=== PATIENT | male | born 1935 | race Caucasian/White ===

== ENCOUNTER 2017-02-04 12:23 | Emergency (ER) | payer OTHER, BC ==
[~2017-02-04] VITALS: Ht 180.3 cm; Wt 83.4 kg
[~2017-02-04 12:23] MED LIST: ASPIR-LOW81 MG PO; ATORVASTATIN CA80 MG PO; CELEXA40 MG PO; INDERAL60 MG PO; PANTOPRAZOLE SO40 MG PO; PRIMIDONE50 MG PO; PROPRANOLOL HCL60 MG PO; RAMIPRIL2.5 MG PO
[2017-02-04 13:23] LABS: HEMATOCRIT 39.4 % (38.0-50.0); MCH 27.4 PG (29.0-34.0); MCHC 32.5 G/DL (30.0-36.0); MCV 84.4 FL (86-99); MEAN PLAT.VOLUME 10.4 uM^3 (9.0-12.4); PLATELET COUNT 137 K/uL (156-360); RBC DIS.WIDTH-CV 14.2 % (11.8-14.6); RED BLOOD COUNT 4.67 M/uL (4.00-5.50); WHITE BLOOD COUNT 7.2 K/uL (4.1-10.2)
[2017-02-04 13:33] LABS: CHLORIDE 106 mEq/L (99-109); POTASSIUM 3.7 mEq/L (3.7-5.4); SODIUM 138 mEq/L (136-147)
[2017-02-04 13:36] LABS: GLUCOSE 107 mg/dL (70-99)
[2017-02-04 13:37] LABS: ANION GAP 10 MEQ/L (2-14)
[2017-02-04 13:38] LABS: TOTAL BILIRUBIN 1.6 mg/dL (0.0-1.0)
[2017-02-04 13:39] LABS: ALKALINE PHOSPHATASE 59 IU/L (3-129); GFR ESTIMATE (CALCULATED) 56 mL/min/
[2017-02-04 13:40] LABS: UREA NITROGEN (BUN) 15 mg/dL (9-23)
[2017-02-04] MEDS ORDERED: ATORVASTATIN CA40 MG PO (15:02)
[2017-02-04 15:11] LABS: ADD MIUA? NO; BILIRUBIN NEGATIVE; BLOOD NEGATIVE; COLOR YELLOW ((YELLOW)); GLUCOSE (STRIP) NEGATIVE; KETONES NEGATIVE; LEUKOCYTES NEGATIVE; NITRITE NEGATIVE; PROTEIN (STRIP) NEGATIVE; SPECIFIC GRAVITY 1.013 (1.000-1.030); UCUL ADDED? NO; UROBILINOGEN 0.2 MG/DL (0.2-1.0)
[2017-02-04 16:30] VITALS: BP 128/64
[2017-02-05] MEDS ORDERED: FLAGYL500 MG PO (17:21)
[2017-02-05] MEDS ORDERED: CIPRO500 MG PO (17:21)
[2017-02-05] MEDS ORDERED: ZOFRAN ODT4 MG PO (17:21)
== END 2017-02-04 16:32 | disposition home or self-care (01) ==
LOC: EME 12:23
DX: R19.7 Diarrhea, unspecified (principal); R11.2 Nausea with vomiting, unspecified; E78.5 Hyperlipidemia, unspecified; I10 Essential (primary) hypertension; Z86.73 Personal history of transient ischemic attack (TIA), and cerebral infarction without residual deficits
CPT/HCPCS: 80053; 81003; 85027; 99281; 99285; J7040

== ENCOUNTER 2017-02-05 13:20 | Emergency (ER) | payer OTHER, BC ==
[~2017-02-05] VITALS: Ht 177.8 cm; Wt 82.1 kg
[~2017-02-05 13:20] MED LIST changes: +ATORVASTATIN CA40 MG PO
[2017-02-05 14:04] LABS: HEMATOCRIT 39.3 % (38.0-50.0); MCH 27.3 PG (29.0-34.0); MCHC 32.3 G/DL (30.0-36.0); MCV 84.5 FL (86-99); MEAN PLAT.VOLUME 10.4 uM^3 (9.0-12.4); PLATELET COUNT 140 K/uL (156-360); RBC DIS.WIDTH-CV 14.1 % (11.8-14.6); RBC DIS.WIDTH-SD 43.2 % (39-53); RED BLOOD COUNT 4.65 M/uL (4.00-5.50); WHITE BLOOD COUNT 4.7 K/uL (4.1-10.2)
[2017-02-05 14:07] LABS: CHLORIDE 108 mEq/L (99-109); POTASSIUM 3.5 mEq/L (3.7-5.4); SODIUM 139 mEq/L (136-147)
[2017-02-05 14:09] LABS: GLUCOSE 111 mg/dL (70-99)
[2017-02-05 14:10] LABS: ANION GAP 10 MEQ/L (2-14)
[2017-02-05 14:12] LABS: ALKALINE PHOSPHATASE 64 IU/L (3-129); TOTAL BILIRUBIN 1.2 mg/dL (0.0-1.0)
[2017-02-05 14:13] LABS: GFR ESTIMATE (CALCULATED) > 59 mL/min/
[2017-02-05 14:14] LABS: UREA NITROGEN (BUN) 17 mg/dL (9-23)
[2017-02-05 16:03] LABS: ADD MIUA? NO; BILIRUBIN NEGATIVE; BLOOD NEGATIVE; COLOR YELLOW ((YELLOW)); GLUCOSE (STRIP) NEGATIVE; KETONES NEGATIVE; LEUKOCYTES NEGATIVE; NITRITE NEGATIVE; PROTEIN (STRIP) NEGATIVE; SPECIFIC GRAVITY 1.008 (1.000-1.030); UCUL ADDED? NO; UROBILINOGEN 0.2 MG/DL (0.2-1.0)
[2017-02-05 16:36] LABS: C DIFF TOXIN NEGATIVE (NEGATIVE); PROBE CHECK PASS; SPECIMEN PROCESSING CONTROL PASS
[2017-02-05] MEDS ORDERED: FLAGYL500 MG PO (17:21)
[2017-02-05] MEDS ORDERED: ZOFRAN ODT4 MG PO (17:21)
[2017-02-05] MEDS ORDERED: CIPRO500 MG PO (17:21)
[2017-02-05 17:37] VITALS: BP 163/78
== END 2017-02-05 17:39 | disposition home or self-care (01) ==
LOC: EME 13:20
PROVIDERS: Emergency Medicine
DX: R19.7 Diarrhea, unspecified (principal); E86.0 Dehydration; R53.1 Weakness; E78.5 Hyperlipidemia, unspecified; I10 Essential (primary) hypertension; K21.9 Gastro-esophageal reflux disease without esophagitis; Z86.73 Personal history of transient ischemic attack (TIA), and cerebral infarction without residual deficits
CPT/HCPCS: 74177; 80053; 81003; 85027; 87045; 87493; 87506; 99281; 99285; J7030

== ENCOUNTER 2017-02-25 11:28 | Inpatient (IN) | payer OTHER, BC ==
[~2017-02-25] VITALS: Ht 180.3 cm; Wt 80.7 kg
[~2017-02-25 11:28] MED LIST changes: +CIPRO500 MG PO; +FLAGYL500 MG PO; +ZOFRAN ODT4 MG PO
[2017-02-25 13:35] LABS: HEMATOCRIT 40.3 % (38.0-50.0); MCH 27.3 PG (29.0-34.0); MCHC 32.5 G/DL (30.0-36.0); MCV 84.1 FL (86-99); MEAN PLAT.VOLUME 10.8 uM^3 (9.0-12.4); PLATELET COUNT 177 K/uL (156-360); RBC DIS.WIDTH-CV 14.4 % (11.8-14.6); RBC DIS.WIDTH-SD 43.9 % (39-53); RED BLOOD COUNT 4.79 M/uL (4.00-5.50); WHITE BLOOD COUNT 5.8 K/uL (4.1-10.2)
[2017-02-25 13:46] LABS: CHLORIDE 106 mEq/L (99-109); POTASSIUM 3.7 mEq/L (3.7-5.4); SODIUM 140 mEq/L (136-147)
[2017-02-25 13:49] LABS: GLUCOSE 93 mg/dL (70-99)
[2017-02-25 13:50] LABS: ANION GAP 9 MEQ/L (2-14)
[2017-02-25 13:51] LABS: TOTAL BILIRUBIN 1.1 mg/dL (0.0-1.0)
[2017-02-25 13:52] LABS: ALKALINE PHOSPHATASE 61 IU/L (3-129); GFR ESTIMATE (CALCULATED) > 59 mL/min/
[2017-02-25 13:53] LABS: UREA NITROGEN (BUN) 7 mg/dL (9-23)
[2017-02-25 13:56] LABS: LIPASE 22 U/L (1.0-51.0)
[2017-02-25 15:28] LABS: INTERNAL CONTROL VALID? YES
[2017-02-25 15:35] LABS: ADD MIUA? YES; BILIRUBIN NEGATIVE; BLOOD NEGATIVE; COLOR YELLOW ((YELLOW)); GLUCOSE (STRIP) NEGATIVE; KETONES NEGATIVE; LEUKOCYTES NEGATIVE; NITRITE NEGATIVE; PROTEIN (STRIP) 100; SPECIFIC GRAVITY 1.011 (1.000-1.030); UROBILINOGEN 0.2 MG/DL (0.2-1.0)
[2017-02-25 15:40] LABS: BACTERIA RARE /HPF; EPITHELIAL CELLS NONE SEEN /HPF; HYALINE CASTS 20-30 /LPF; MUCUS TRACE /LPF; RED BLOOD CELLS 0-5 /HPF (0-5); WHITE BLOOD CELLS 0-5 /HPF (0-5)
[2017-02-25 15:52] LABS: C DIFF TOXIN POSITIVE (NEGATIVE)
[2017-02-25 15:54] LABS: PROBE CHECK PASS
[2017-02-25] MEDS ORDERED: FLAGYL500 MG PO (16:18)
[2017-02-25] MEDS ORDERED: RAPAFLO8 MG PO (17:30)
[2017-02-25] MEDS ORDERED: PROPRANOLOL HC120 MG PO (17:30)
[2017-02-25] MEDS ORDERED: RANITIDINE HCL150 MG PO (17:30)
[2017-02-25] MEDS ORDERED: LO-DOSE ASPIRIN81 M1 PO (17:30)
[2017-02-25] MEDS ORDERED: MYRBETRIQ25 MG PO (17:31)
[2017-02-25] MEDS ORDERED: CALCIUM 600 +1 EA16 PO (17:31)
[2017-02-25] MEDS ORDERED: VITAMIN C1000 MG PO (17:31)
[2017-02-25 18:04] LABS: C-REACTIVE PROTEIN 15.6 MG/L (0-10); SAMPLE HEMOLYSIS CHECK 0; SAMPLE ICTERIC CHECK 0; SAMPLE LIPEMIA CHECK 0
[2017-02-25 23:50] VITALS: BP 161/74
[2017-02-26 04:00] VITALS: BP 142/85
[2017-02-26 06:53] LABS: HEMATOCRIT 35.9 % (38.0-50.0); MCH 27.5 PG (29.0-34.0); MCHC 32.3 G/DL (30.0-36.0); MCV 85.1 FL (86-99); MEAN PLAT.VOLUME 10.6 uM^3 (9.0-12.4); PLATELET COUNT 160 K/uL (156-360); RBC DIS.WIDTH-CV 14.3 % (11.8-14.6); RBC DIS.WIDTH-SD 44.5 % (39-53); RED BLOOD COUNT 4.22 M/uL (4.00-5.50)
[2017-02-26 07:06] LABS: ANION GAP 9 MEQ/L (2-14); CHLORIDE 110 MEQ/L (99-109); GFR ESTIMATE (CALCULATED) > 59 mL/min/; GLUCOSE 85 mg/dL (70-99); POTASSIUM 3.7 MEQ/L (3.7-5.4); SAMPLE HEMOLYSIS CHECK 0; SAMPLE ICTERIC CHECK 0; SAMPLE LIPEMIA CHECK 0; SODIUM 141 MEQ/L (136-147); UREA NITROGEN (BUN) 10 mg/dL (9-23)
[2017-02-26 08:11] VITALS: BP 169/85
[2017-02-26 11:40] VITALS: BP 155/86
[2017-02-26 15:19] VITALS: BP 169/88
[2017-02-26 20:07] VITALS: BP 198/85
[2017-02-27] VITALS: BP 152/81
[2017-02-27 04:39] VITALS: BP 129/94
[2017-02-27 07:57] VITALS: BP 156/82
[2017-02-27 08:39] LABS: HEMATOCRIT 34.8 % (38.0-50.0); MCH 28.3 PG (29.0-34.0); MCHC 33.6 G/DL (30.0-36.0); MCV 84.1 FL (86-99); PLATELET COUNT 167 K/uL (156-360); RBC DIS.WIDTH-CV 14.3 % (11.8-14.6); RBC DIS.WIDTH-SD 43.9 % (39-53); RED BLOOD COUNT 4.14 M/uL (4.00-5.50); WHITE BLOOD COUNT 3.2 K/uL (4.1-10.2)
[2017-02-27 09:34] LABS: ANION GAP 4 MEQ/L (2-14); CHLORIDE 113 MEQ/L (99-109); GFR ESTIMATE (CALCULATED) > 59 mL/min/; GLUCOSE 94 mg/dL (70-99); POTASSIUM 4.5 MEQ/L (3.7-5.4); SAMPLE HEMOLYSIS CHECK 0; SAMPLE ICTERIC CHECK 0; SAMPLE LIPEMIA CHECK 0; SODIUM 142 MEQ/L (136-147); UREA NITROGEN (BUN) 5 mg/dL (9-23)
[2017-02-27 16:16] VITALS: BP 146/80
[2017-02-27 20:00] VITALS: BP 198/93
[2017-02-28] VITALS: BP 159/72
[2017-02-28 03:59] VITALS: BP 169/71
[2017-02-28 06:44] LABS: HEMATOCRIT 35.6 % (38.0-50.0); MCH 27.2 PG (29.0-34.0); MCHC 32.6 G/DL (30.0-36.0); MCV 83.6 FL (86-99); MEAN PLAT.VOLUME 10.6 uM^3 (9.0-12.4); PLATELET COUNT 170 K/uL (156-360); RBC DIS.WIDTH-CV 14.1 % (11.8-14.6); RBC DIS.WIDTH-SD 43.3 % (39-53); RED BLOOD COUNT 4.26 M/uL (4.00-5.50); WHITE BLOOD COUNT 4.7 K/uL (4.1-10.2)
[2017-02-28 07:17] LABS: ANION GAP 7 MEQ/L (2-14); CHLORIDE 110 MEQ/L (99-109); GFR ESTIMATE (CALCULATED) > 59 mL/min/; GLUCOSE 97 mg/dL (70-99); POTASSIUM 4.3 MEQ/L (3.7-5.4); SAMPLE HEMOLYSIS CHECK 0; SAMPLE ICTERIC CHECK 0; SAMPLE LIPEMIA CHECK 0; SODIUM 140 MEQ/L (136-147); UREA NITROGEN (BUN) 8 mg/dL (9-23)
[2017-02-28 08:04] VITALS: BP 142/80
[2017-02-28] MEDS ORDERED: VANCOMYCIN125 MG/2.5 PO (11:16)
[2017-02-28] MEDS ORDERED: AMLODIPINE BESYL5 MG PO (11:24)
[2017-02-28] MEDS ORDERED: BEDSIDECOMMODE MC (11:26)
[2017-02-28 11:55] VITALS: BP 140/78
== END 2017-02-28 16:27 | disposition home health service (06) | DRG 373 ==
LOC: EME 11:28 → EDOF 16:44 → 5SOUTH 16:44
PROVIDERS: Internal Medicine; Physician Assistant
DX: A04.7 Enterocolitis due to Clostridium difficile (principal); I10 Essential (primary) hypertension; E78.5 Hyperlipidemia, unspecified; K21.9 Gastro-esophageal reflux disease without esophagitis; F32.9 Major depressive disorder, single episode, unspecified; N32.81 Overactive bladder; Z86.73 Personal history of transient ischemic attack (TIA), and cerebral infarction without residual deficits; M47.9 Spondylosis, unspecified
CPT/HCPCS: 74022; 80048; 80053; 81003; 83630; 83690; 85027; 86140; 87040; 87045; 87046; 87493; 87506; 99281; 99284; J1650; J3480; J7030; S0030

== ENCOUNTER 2017-03-20 10:00 | Inpatient (IN) | payer OTHER, BC ==
[~2017-03-20] VITALS: Ht 172.7 cm; Wt 79.0 kg
[~2017-03-20 10:00] MED LIST changes: +AMLODIPINE BESYL5 MG PO; +BEDSIDECOMMODE MC; +CALCIUM 600 +1 EA16 PO; +LO-DOSE ASPIRIN81 M1 PO; +MYRBETRIQ25 MG PO; +PROPRANOLOL HC120 MG PO; +RANITIDINE HCL150 MG PO; +RAPAFLO8 MG PO; +VANCOMYCIN125 MG/2.5 PO; +VITAMIN C1000 MG PO
[2017-03-20 11:59] LABS: HEMATOCRIT 35.3 % (38.0-50.0); MCH 27.6 PG (29.0-34.0); MCHC 32.9 G/DL (30.0-36.0); PLATELET COUNT 152 K/uL (156-360); RBC DIS.WIDTH-CV 14.4 % (11.8-14.6); RBC DIS.WIDTH-SD 44.1 % (39-53); WHITE BLOOD COUNT 14.9 K/uL (4.1-10.2)
[2017-03-20 12:03] LABS: C DIFF TOXIN POSITIVE (NEGATIVE)
[2017-03-20 12:06] LABS: PROBE CHECK PASS; SPECIMEN PROCESSING CONTROL PASS
[2017-03-20 12:11] LABS: CHLORIDE 108 mEq/L (99-109); POTASSIUM 3.3 mEq/L (3.7-5.4); SODIUM 137 mEq/L (136-147)
[2017-03-20 12:13] LABS: GLUCOSE 130 mg/dL (70-99)
[2017-03-20 12:14] LABS: ANION GAP 10 MEQ/L (2-14)
[2017-03-20 12:15] LABS: TOTAL BILIRUBIN 1.4 mg/dL (0.0-1.0)
[2017-03-20 12:16] LABS: ALKALINE PHOSPHATASE 59 IU/L (3-129)
[2017-03-20 12:17] LABS: GFR ESTIMATE (CALCULATED) 48 mL/min/
[2017-03-20 12:18] LABS: UREA NITROGEN (BUN) 25 mg/dL (9-23)
[2017-03-20 12:20] LABS: LIPASE 13 U/L (1.0-51.0)
[2017-03-20 13:08] LABS: ADD MIUA? NO; BILIRUBIN NEGATIVE; BLOOD NEGATIVE; COLOR YELLOW ((YELLOW)); GLUCOSE (STRIP) NEGATIVE; KETONES NEGATIVE; LEUKOCYTES NEGATIVE; NITRITE NEGATIVE; PROTEIN (STRIP) NEGATIVE; SPECIFIC GRAVITY 1.009 (1.000-1.030); UCUL ADDED? NO; UROBILINOGEN 0.2 MG/DL (0.2-1.0)
[2017-03-20 13:32] LABS: MAGNESIUM 1.6 mg/dL (1.3-2.7)
[2017-03-20 14:54] VITALS: BP 131/50
[2017-03-20 17:51] VITALS: BP 117/56
[2017-03-20 23:02] VITALS: BP 113/46
[2017-03-21 04:00] VITALS: BP 111/49
[2017-03-21 06:14] LABS: HEMATOCRIT 31.5 % (38.0-50.0); MCV 84.7 FL (86-99); MEAN PLAT.VOLUME 11.2 uM^3 (9.0-12.4); PLATELET COUNT 123 K/uL (156-360); RBC DIS.WIDTH-CV 14.8 % (11.8-14.6); RBC DIS.WIDTH-SD 45.4 % (39-53); RED BLOOD COUNT 3.72 M/uL (4.00-5.50); WHITE BLOOD COUNT 7.3 K/uL (4.1-10.2)
[2017-03-21 06:46] LABS: ANION GAP 8 MEQ/L (2-14); CHLORIDE 113 MEQ/L (99-109); GFR ESTIMATE (CALCULATED) 56 mL/min/; POTASSIUM 3.4 MEQ/L (3.7-5.4); SAMPLE HEMOLYSIS CHECK 0; SAMPLE ICTERIC CHECK 0; SAMPLE LIPEMIA CHECK 0; SODIUM 140 MEQ/L (136-147); UREA NITROGEN (BUN) 21 mg/dL (9-23)
[2017-03-21 06:56] LABS: GLUCOSE 93 mg/dL (70-99)
[2017-03-21 07:58] VITALS: BP 130/62
[2017-03-21 11:56] VITALS: BP 138/70
[2017-03-21 15:31] VITALS: BP 142/64
[2017-03-21 19:56] VITALS: BP 137/69
[2017-03-21 23:33] VITALS: BP 131/72
[2017-03-22] VITALS (7 sets, daily range): BP systolic 120–165; BP diastolic 56–84
[2017-03-22 06:13] LABS: EOSINOPHIL (%) 3.7 % (0-5); EOSINOPHIL COUNT 0.1 K/uL (0-0.3); HEMATOCRIT 32.1 % (38.0-50.0); IMMATURE GRANULOCYTE (%) 0.3 % (0.0-0.7); INSTRUMENT ABS NEUTROPHIL CT 1.9 K/uL; MCH 27.9 PG (29.0-34.0); MCV 84.5 FL (86-99); MEAN PLAT.VOLUME 11.3 uM^3 (9.0-12.4); MONOCYTE (%) 11.4 % (3-12); MONOCYTE COUNT 0.4 K/uL (0-0.8); NEUTROPHIL (%) 55.2 % (45-76); NEUTROPHIL COUNT 1.9 K/uL (1.8-6.4); PLATELET COUNT 131 K/uL (156-360); RBC DIS.WIDTH-CV 14.9 % (11.8-14.6); RBC DIS.WIDTH-SD 45.4 % (39-53); WHITE BLOOD COUNT 3.5 K/uL (4.1-10.2)
[2017-03-22 06:37] LABS: ALKALINE PHOSPHATASE 49 IU/L (3-129); ANION GAP 5 MEQ/L (2-14); CHLORIDE 116 MEQ/L (99-109); GFR ESTIMATE (CALCULATED) > 59 mL/min/; GLUCOSE 108 mg/dL (70-99); POTASSIUM 3.8 MEQ/L (3.7-5.4); SAMPLE HEMOLYSIS CHECK 0; SAMPLE ICTERIC CHECK 0; SAMPLE LIPEMIA CHECK 0; SODIUM 142 MEQ/L (136-147); TOTAL BILIRUBIN 0.7 MG/DL (0.0-1.0); UREA NITROGEN (BUN) 11 mg/dL (9-23)
[2017-03-23 04:11] VITALS: BP 148/77
[2017-03-23 06:46] LABS: EOSINOPHIL (%) 4.3 % (0-5); EOSINOPHIL COUNT 0.2 K/uL (0-0.3); HEMATOCRIT 31.8 % (38.0-50.0); IMMATURE GRANULOCYTE (%) 0.3 % (0.0-0.7); INSTRUMENT ABS NEUTROPHIL CT 1.6 K/uL; LYMPHOCYTE COUNT 1.8 K/uL (1.0-2.8); MCH 28.3 PG (29.0-34.0); MCV 83.5 FL (86-99); MEAN PLAT.VOLUME 11.6 uM^3 (9.0-12.4); MONOCYTE (%) 11.6 % (3-12); MONOCYTE COUNT 0.5 K/uL (0-0.8); NEUTROPHIL (%) 39.1 % (45-76); NEUTROPHIL COUNT 1.6 K/uL (1.8-6.4); PLATELET COUNT 138 K/uL (156-360); RBC DIS.WIDTH-CV 15.2 % (11.8-14.6); RBC DIS.WIDTH-SD 45.8 % (39-53); RED BLOOD COUNT 3.81 M/uL (4.00-5.50)
[2017-03-23 07:12] LABS: ALKALINE PHOSPHATASE 51 IU/L (3-129); ANION GAP 8 MEQ/L (2-14); CHLORIDE 112 MEQ/L (99-109); GFR ESTIMATE (CALCULATED) > 59 mL/min/; GLUCOSE 96 mg/dL (70-99); POTASSIUM 3.6 MEQ/L (3.7-5.4); SAMPLE HEMOLYSIS CHECK 0; SAMPLE ICTERIC CHECK 0; SAMPLE LIPEMIA CHECK 0; SODIUM 141 MEQ/L (136-147); TOTAL BILIRUBIN 0.7 MG/DL (0.0-1.0); UREA NITROGEN (BUN) 11 mg/dL (9-23)
[2017-03-23 08:29] VITALS: BP 138/62
[2017-03-23] MEDS ORDERED: VANCOMYCIN125 MG/2.5 PO (09:59)
[2017-03-23] MEDS ORDERED: ACIDOPHILUS LA1 EACH PO (09:59)
[2017-03-23 14:38] VITALS: BP 148/73
== END 2017-03-23 16:17 | disposition home or self-care (01) | DRG 372 ==
LOC: EME 10:00 → EDOF 13:05 → 5SOUTH 13:05
PROVIDERS: Emergency Medicine; Hospitalist; Internal Medicine
DX: A04.7 Enterocolitis due to Clostridium difficile (principal); N17.9 Acute kidney failure, unspecified; E86.0 Dehydration; E78.5 Hyperlipidemia, unspecified; E87.6 Hypokalemia; I10 Essential (primary) hypertension; K21.9 Gastro-esophageal reflux disease without esophagitis; N32.81 Overactive bladder; Z79.82 Long term (current) use of aspirin; Z86.19 Personal history of other infectious and parasitic diseases; Z86.73 Personal history of transient ischemic attack (TIA), and cerebral infarction without residual deficits; D64.9 Anemia, unspecified
CPT/HCPCS: 80048; 80053; 81003; 82948; 83690; 83735; 85025; 85027; 87040; 87493; 99281; 99285; J1644; J3475; J3480; J7030; S0030

== ENCOUNTER 2017-10-08 13:50 | Emergency (ER) | payer OTHER, BC ==
[~2017-10-08] VITALS: Ht 180.3 cm; Wt 87.5 kg
[~2017-10-08 13:50] MED LIST changes: +ACIDOPHILUS LA1 EACH PO
[2017-10-08 15:00] VITALS: BP 134/51
== END 2017-10-08 15:29 | disposition home or self-care (01) ==
LOC: EME 13:50
DX: S09.90XA Unspecified injury of head, initial encounter (principal); W00.0XXA Fall on same level due to ice and snow, initial encounter; Z79.82 Long term (current) use of aspirin; E78.5 Hyperlipidemia, unspecified; I10 Essential (primary) hypertension; F32.9 Major depressive disorder, single episode, unspecified; K21.9 Gastro-esophageal reflux disease without esophagitis; F41.9 Anxiety disorder, unspecified; Z86.73 Personal history of transient ischemic attack (TIA), and cerebral infarction without residual deficits
CPT/HCPCS: 70450; 99281; 99284